=== PATIENT | female | born 1990 | race Caucasian/White ===

== ENCOUNTER 2020-01-22 03:15 | Emergency (ER) | payer MEDICAID ==
[~2020-01-22] VITALS: Ht 162.6 cm; Wt 68.0 kg
[2020-01-22 03:57] LABS: Urine Bacteria FEW /hpf (None Seen); Urine Blood Negative /uL (Negative); Urine Mucus FEW (None Seen); Urine Specific Gravity 1.034 (1.001-1.035); Urine WBC 6 /hpf (0 - 5)
[2020-01-22 05:19] VITALS: BP 143/75
== END 2020-01-22 05:26 | disposition home or self-care (01) ==
LOC: ER 03:17
DX: S30.810A Abrasion of lower back and pelvis, initial encounter (principal); L02.31 Cutaneous abscess of buttock; F17.210 Nicotine dependence, cigarettes, uncomplicated; Z88.2 Allergy status to sulfonamides; X58.XXXA Exposure to other specified factors, initial encounter; Y93.89 Activity, other specified; Y92.89 Other specified places as the place of occurrence of the external cause; Y99.8 Other external cause status
CPT/HCPCS: 81001